=== PATIENT | male | born 1960 | race Caucasian/White ===

== ENCOUNTER 2025-01-23 03:36 | Inpatient (IN) | payer MEDICARE, SELFPAY ==
[2025-01-23] VITALS (33 sets, daily range): BP systolic 101–169; BP diastolic 58–108; BMI 23.9; BMI 23.7
--- NOTE | 2025-01-23 00:13 | ED.GENMED ---
History of Present Illness
General
Chief Complaint: Chest Pain
Source: patient
Exam Limitations: none
Time Seen by Provider: 01/23/25 00:09
History of Present Illness
History of Present Illness:
See MDM
Past History
Past History
ED Past Medical History: CAD, GERD and HTN
Social History
Tobacco: Former smoker
Personal:
Phy Exam
Physical Exam
Physical Exam:
See MDM
Scores
Heart Score for Chest Pain Patients
STEMI patient?: No
History: Moderately Suspicious
ECG: Significant ST-Depression
Age: >/= 65 years
Risk Factors: >/= 3 Risk Factors or History of CAD
Troponin: >1 - <3 x Normal Limit
Heart Score for Chest Pain Patients: 8
Heart Score Risk: 72.7 % MACE over next 6 weeks
Course
Orders/Labs/Results
Orders:
Orders
01/23/25 00:10
EKG [Electrocardiogram (*1)] Urgent
Reason for Study: Chest Pain
EKG- Treatment ONCE
01/23/25 00:13
CR Chest - 2 Views Urgent
Comment:
Reason For Exam: left side chest pain
01/23/25 00:18
Complete Blood Count/With Diff Urgent
Comprehensive Metabolic Panel Urgent
Troponin I Urgent
01/23/25 00:20
Nitroglycerin Sublingual [Nitrostat (Sublingual)] 0.4 mg .ROUTE .STK-MED ONE
01/23/25 00:22
Nitroglycerin Sublingual [Nitrostat (Sublingual)] 0.4 mg SL NOW STA
01/23/25 00:30
Heparin 4,000 units IV NOW STA
Nursing to Place Non Medication Order As Directed
Physician Order: PTT 6 hours after initial start of Heparin infusion
Above order entered?: Yes
01/23/25 00:35
PTT Urgent
Comment: Obtain baseline before beginning heparin infusion if not already collected
01/23/25 00:45
Heparin 40925 Units/250 ml 25,000 units in 250 ml IV PER PROTOCOL
Weight to be used for heparin protocol in kilograms (kg):: 75.5
Protocol:: Cardiac Tx/Acute Coronary
PTT Goal Range to be used:: PTT 73 to 111 seconds
Order type:: Initial
INITIAL Infusion Dose (UNITS/KG/hr) & then follow protocol:: 15 units/kg/hr
Infusion Dose in UNITS/hr & then follow protocol (UNITS/hr):: 1,150
INFUSION RATE in mL/hr & then follow protocol (mL/hr):: 11.5
PTT less than or equal to 64 seconds:: Increase rate by 200 units/hr (+ 2 mL/hr)
PTT 64.1 to 72.9 seconds:: Increase rate by 100 units/hr (+ 1 mL/hr)
PTT 73 to 111 seconds:: Target Range. No change in rate.
PTT 111.1 to 130.9 seconds:: Decrease rate by 100 units/hr (- 1 mL/hr)
PTT 131 to 199.9 seconds:: HOLD for 1 hr. Then decrease rate by 200 units/hr (- 2 mL/hr)
PTT greater than or equal to 200 seconds:: HOLD for 2 hrs & Notify Provider. Then decrease by 200 units/hr (-
2 mL/hr)
Lab follow-up:: Each change, PTT q6h until 2 consecutive are therapeutic. Then PTT
daily.
01/23/25 06:53
PTT Urgent
Abnormal Lab Results
01/23/25
00:18
MPV 12.3 H fL
(7.4-10.4)
Abs Immat Gran (auto) 0.2 H 10^3/uL
(0-0.05)
Absolute Neuts (auto) 7.1 H 10^3/uL
(1.4-6.5)
Absolute Lymphs (auto) 0.9 L 10^3/uL
(1.2-3.4)
Immature Gran % 1.7 H %
(0-0.5)
Neutrophils % 81.8 H %
(42.2-75.2)
Lymphocytes % 9.9 L %
(20.5-51.1)
BUN 23 H mg/dl
(9-20)
Glucose 205 H mg/dl
(70-99)
Troponin I 0.041 H* ng/ml
01/23/25 00:18
01/23/25 00:18
Vital Signs
Initial and Last Documented VS:
Initial Vital Signs
Pulse Ox
97
01/23/25 00:12
Last Documented Vital Signs
Temp Pulse Resp BP Pulse Ox
98.5 F 62 12 132/87 96
01/23/25 00:21 01/23/25 01:00 01/23/25 01:00 01/23/25 01:00 01/23/25 00:30
MDM/Problems Addressed
Differential Diagnosis Includes:
HPI and MDM Narrative:
64-year-old male presenting with left-sided chest pain. He noticed the pain approximately 1 to 2 hours ago when he woke up. He eventually decided to take a nitroglycerin tablet but it did not help. He took aspirin. He then called 911. EMS
provided another nitroglycerin with no relief. Patient does have a history of cardiac stents. He denies shortness of breath.
Physical exam
General: Well appearing and non-toxic
HEENT: protecting airway
Neck: appears supple
CV: No evidence of cyanosis. Regular rate and rhythm
Resp: No accessory muscle use. Lungs clear
Abd: Non-distended
Extremities: No deformities
Neuro: alert
Psych: Normal affect
Skin: Intact
Problems Addressed including Acute and Chronic Conditions affecting care:
1. Chest pain
Acuity: acute
Prognosis: unstable
Details: Cardiology aware. Will treat as NSTEMI. Heparin started
Updates
12:15 AM I soon as patient arrived, EKG was performed, there is artifact in V3 which reads STEMI. There is ST depressions and T wave inversions anterior and lateral which is changed from prior. However, prior EKG from 2013. The EKG was repeated
without the artifact which is still somewhat concerning for T wave inversions anterior and laterally
12:25 AM arrived at bedside showing an EKG at baseline and his more recent showing significant ST depressions and T wave inversions which appear similar to what we are seeing now. Case rediscussed with invasive cardiology. Will treat more
likely has NSTEMI. Will not call STEMI alert
Troponin mildly elevated. Nitro does not seem to be helping with the pain. Will give dose of morphine
Differential Diagnosis (but not limited to):
Testing considered:
Drug therapy (if applicable): OTC meds, please see d/c instruction regarding Rx drugs
Amount and/or Complexity of Data Reviewed
Clinical info obtained from: Patient
External data reviewed: N/A
Labs I independently reviewed (but not limited to): Elevated troponin
Radiology: X-ray independently reviewed: Chest x-ray clear
Pulse Ox: not hypoxic
EKG independently reviewed: Sinus rhythm, normal axis, diffuse ST depression and T wave inversion anterior laterally what
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
Critical Care: The high probability of a clinically significant, sudden or life threatening deterioration of the cardiovascular system(s) required my full and direct attention, intervention and personal management. The aggregate critical care time
was 35 minutes. This time is in addition to time spent performing reported procedures but includes the following:
[x] Data Review and interpretation
[x] Patient assessment and monitoring of vital signs
[x] Documentation
[x] Medication orders and management
Risk of Complication:
Social Determinants of health: Good social support
Discussed with other providers: Chick Grader, hospitalist
Escalation of Care includes Admit/Obs: Given concern for NSTEMI, will admit on heparin
Occasional wrong word or 'sound a like' substitutions may have occurred due to the inherent limitations of voice recognition software. Read the chart carefully and recognize, using context, where substitutions have occurred.
*Critical Care Note
Total Time (30-74mins, 75-104mins- exclusive of procedures): 35 min
ED Attending Note
-
Portions of this chart may have been created with voice recognition software.� Occasional wrong word or��sound alike� substitutions may have occurred due to the inherent limitations of voice recognition software.
Discharge Plan
Departure
Patient Disposition: Admit
Date of Disposition: 01/23/25
Time of Disposition: 01:36
Admit to: IMU
Presentation/result/management discussed w/ accepting MD/DO: Hospitalist
Discharge Problem:
Non-ST elevation MD (NSTEMI)
Prescriptions:
No Action
Claritin-D 24 Hour 1 EACH tablet extended release 24 hr
1 tab PO PRN PRN (Reason: BINDU)
aspirin 325 MG tablet
81 mg PO DAILY
atorvastatin 20 MG tablet
10 mg PO QPM
docosahexaenoic acid-epa 1 CAP capsule
1 cap PO DAILY
omeprazole magnesium [Prilosec OTC] 20 MG tablet,delayed release (DR/EC)
20 mg PO DAILY Qty: 0 0RF
Rx Instructions:
over the counter med
atenolol 50 MG tablet
25 mg PO Q48H Qty: 0 0RF
Cimerli 0.5 mg/0.05 mL Solution
0.5 mg INTRAVITREAL [id number]
Referrals:
Karley Porter DO [Family Provider] -
Interventions
Interventions:
*Risk Screen - Suicide Last Done: 01/23/25 00:12
*General Assessment Last Done: 01/23/25 00:12
*Neglect/Abuse Screening Last Done: 01/23/25 00:12
*ED- Fall Risk Assessment Last Done: 01/23/25 00:12
*ED COVID-19 Vaccine History Last Done: 01/23/25 00:19
ED- Cardiac Assessment Last Done: 01/23/25 00:31
Discharge Date and Time
Print Language: ROMANIAN
[2025-01-23] MEDS: NITROSTAT (SUBLINGUAL) 0.4 MG SL (00:23)
[2025-01-23 00:46] LABS: % Basophils 0.7 % (0-2); % Immature Granulocytes 1.7 % (0-0.5); % Lymphocytes 9.9 % (20.5-51.1); % Monocytes 4.9 % (1.7-9.3); % Neutrophils 81.8 % (42.2-75.2); Absolute Basophils 0.1 10^3/uL (0-0.2); Absolute Eosinophils 0.1 10^3/uL (0-0.7); Absolute Immature Granulocytes 0.2 10^3/uL (0-0.05); Absolute Lymphocytes 0.9 10^3/uL (1.2-3.4); Absolute Monocytes 0.4 10^3/uL (0.1-0.6); Absolute Neutrophils 7.1 10^3/uL (1.4-6.5); Hemoglobin 14.5 g/dL (13.0-18.0); Mean Corp Hgb Conc. 34.5 g/dL (33.0-37.0); Mean Corpuscular Hgb 30.7 pg (27.0-31.0); Mean Corpuscular Volume 88.8 fL (80.0-94.0); Mean Platelet Volume 12.3 fL (7.4-10.4); Nucleated Red Blood Cells % 0 % (-); Platelet Count 154 10^3/uL (130-400); Red Blood Cell Count 4.73 10^6/uL (4.70-6.10); Red Cell Dist. Width 12.9 % (11.5-14.5); White Blood Cell Count 8.7 10^3/uL (4.8-10.8)
[2025-01-23 00:47] LABS: ALT (SGPT) 29 U/L (0-50); AST (SGOT) 27 U/L (17-59); Albumin 4.1 g/dl (3.5-5.0); Alkaline Phosphatase 69 U/L (38-126); Blood Urea Nitrogen 23 mg/dl (9-20); Calcium 10.2 mg/dl (8.4-10.2); Carbon Dioxide 28 mmol/L (22-30); Chloride 105 mmol/L (98-107); Estimated Creatinine Clearance 94 ml/min; Glucose 205 mg/dl (70-99); Potassium 4.6 mmol/L (3.5-5.1); Sodium 142 mmol/L (135-145); Total Bilirubin 0.5 mg/dl (0.2-1.3); Total Protein 6.8 g/dl (6.3-8.2); eGFR > 60.00
[2025-01-23 00:51] LABS: APTT 24.4 Sec (23.4-35.0)
[2025-01-23] MEDS: HEPARIN 4000 UNITS IV (00:52)
[2025-01-23] MEDS: HEPARIN 25000 UNITS/250 ML IV (00:53)
[2025-01-23 01:00] LABS: Troponin I 0.041 ng/ml
[2025-01-23] MEDS: MORPHINE SULFATE 4 MG IV (02:27)
[2025-01-23] MEDS: NITROGLYCERIN PREMIX 250 IV (03:27)
[2025-01-23 04:25] LABS: Troponin I 0.432 ng/ml
--- NOTE | 2025-01-23 04:33 | HPS.HSE ---
Family Physician
-
Family Physician: Karley Porter
Chief Complaint
-
Chest Pain
History of Present Illness
Patient is a 64y M with PMH significant for ASCVD who presents to ED complaining of chest pain. Patient states that pain started this evening around 10:30 PM. He was preparing for bed when the pain started. He describes substernal chest pain
with some radiation into the L chest. Brief period of 'tingling' in the L arm. No radiation to the back, jaw, abdomen. Pos diaphoresis. No N/V. No SOB. Pain was 8/10 at it's peak. Patient denies any prior h/o similar symptoms. He does have
prior h/o CAD and underwent staged stenting in 2010 (here). He states that he has had no issues since that time. He is followed by Dr. Foy of [facility].
At the time of my examination, patient notes that his chest pain is 6/10. He has had minimal improvement in symptoms despite SL NTG and IV morphine here in the ED.
Medical History
Past Medical History
Past Medical History: Reports Other
Additional Past Medical History:
ASCVD
CRVO
Past Surgical History: Reports Other
Additional Past Surgical History:
PTCA with 3 Stents
Social History
Tobacco: Former Smoker (Quit smoking 30 years ago.)
Alcohol: Occasional
Drug: None
Family History
Family History: CAD
Allergies / Home Medications
Allergies reflects when Allergies were last updated in [employer].
Home Medications with original date entered in [employer]
Allergy/Medication List:
Allergies
Allergy/AdvReac Type Severity Reaction Status Date / Time
No Known Allergies Allergy Verified 01/23/25 02:36
Home Medications
loratadine-pseudoephedrine ER 10 mg-240 mg tablet,extended [id number] (Claritin-D 24 Hour) 1 tab PO PRN PRN ALERGIES 08/05/11
aspirin 325 mg tablet 81 mg PO DAILY 08/12/11
atorvastatin 20 mg tablet 10 mg PO QPM 08/12/11
atenolol 50 mg tablet 25 mg (1/2 x 50 mg) PO Q48H #0 tabs 10/29/13
docosahexaenoic acid (dha)-epa 120 mg-180 mg capsule 1 cap PO DAILY 10/29/13
omeprazole magnesium 20 mg tablet,delayed release (Prilosec OTC) 20 mg PO DAILY ##0 10/29/13
ranibizumab-eqrn 0.5 mg/0.05 mL intravitreal solution for injection (Cimerli) 0.5 mg intravitreal [id number] 01/23/25
Review of Systems
-
History Source: Patient
A 12 point ROS was completed and negative except as noted: Yes
Constitutional: Denies Fever or Chills
EENT: Denies Sore Throat
Respiratory: Denies Cough or Trouble Breathing
Cardiac: Reports Chest Pain and Diaphoresis; Denies Palpitations or Syncope
Abdomen/GI: Denies Abdominal Pain, Nausea, Vomiting or Diarrhea
: Denies Dysuria or Frequency
Musculoskeletal: Denies Joint Pain or Edema
Neurological: Denies Dizzy or Headache
Psych: Denies Depression or Anxiety
Physical Exam
Vital Signs
Vital Signs
Temp Pulse Resp BP Pulse Ox
98.5 F 86 15 145/84 97
01/23/25 00:21 01/23/25 04:00 01/23/25 04:00 01/23/25 04:00 01/23/25 04:00
Physical Exam
General: Other (64y M in no acute distress.)
HEENT: Moist mucous membranes and PERRLA
Respiratory: Clear; No Wheezes, Rales or Rhonchi
Cardiac: S1/S2 and Regular Rhythm; No Murmur
GI: Soft, Non Tender, Non Distended and Normal Bowel Sounds
Musculoskeletal: No Clubbing, No Cyanosis and No Edema
Neuro: AO x 3
Laboratory Results
-
01/23/25 00:18
Laboratory Results
APTT 24.4 Sec (23.4-35.0) 01/23/25 00:35
Total Bilirubin 0.5 mg/dl (0.2-1.3) 01/23/25 00:18
AST 27 U/L (17-59) 01/23/25 00:18
ALT 29 U/L (0-50) 01/23/25 00:18
Alkaline Phosphatase 69 U/L (38-126) 01/23/25 00:18
Troponin I 0.432 ng/ml H* D 01/23/25 03:37
Impression/Plan
-
A/P: Patient is a 64y M with PMH significant for ASCVD who presents to ED complaining of chest pain.
NSTEMI / ACS
ASCVD
- Admit for further evaluation and treatment.
- EKG in the ED with diffuse ST depressions / T wave inversions.
- Significant change from prior tracings here (2013); however, has 'baseline' EKG from his current Biological Technical Officer showing similar changes.
- Initial troponin 0.04. Pain persistent thus far despite NTG / morphine.
- Begin IV NTG infusion and titrate as needed for pain control.
- IV heparin.
- Continue ASA, statin (increase dose), etc.
- IV Lopressor ATC for now.
- Check lipid panel, A1C, etc.
- Cardiology consult for additional recommendations and likely ischemic evaluation.
- Consider more urgent intervention if pain cannot be controlled.
CRVO
- Stable. Continue ASA as noted above.
- Received monthly Cimerli injections as an outpatient.
DVT Prophylaxis: On IV heparin infusion at present.
Code Status: Full
--- NOTE | 2025-01-23 05:23 | PTCARENOTE ---
Rec'd pt from ED awake,alert stating CP is improved since admit but still has 2 out of 10 midsternal sharp pain, non radiating. NTG gtt at 35 mcq upon arrival but increased to 40 mcq when pt stated he thought cp was up to 3 out of 10. Pt aware to
call nursing should cp increase. call euceda within reach. Adm hx taken and recorded
ACS education book given to pt
--- NOTE | 2025-01-23 06:55 | PTCARENOTE ---
Pt still with c/o 3 out of 10 CP. O2 at 2lit n/c placed. Am ecg showed STEMI. ECG sent to Dr Yeboah via [employer] text. Dr Yeboah states their is no stemi.
[2025-01-23 07:00] LABS: APTT 111.8 Sec (23.4-35.0)
[2025-01-23 07:35] LABS: Blood Urea Nitrogen 19 mg/dl (9-20); Calcium 10.2 mg/dl (8.4-10.2); Carbon Dioxide 26 mmol/L (22-30); Chloride 108 mmol/L (98-107); Estimated Creatinine Clearance 107 ml/min; Glucose 121 mg/dl (70-99); HDL Cholesterol 49 mg/dl; LDL Cholesterol, Calculated 71 mg/dl; Potassium 4.3 mmol/L (3.5-5.1); Sodium 141 mmol/L (135-145); Total Cholesterol 131 mg/dl (50-199); Triglyceride 56 mg/dl (10-149); Very Low Density Lipoprotein 11 mg/dl (0-30); eGFR > 60.00
--- NOTE | 2025-01-23 08:47 | W.PN.HOSP.TC ---
Today's Communication/Plan
-
Hemoglobin A1c
N.p.o.
Await catheterization
Assessment / Plan
Assessment / Plan
Gen-AAOx3, NAD
HEENT-NC, AT, anicteric, clear oral mm
Neck-supple
CV-reg, no M, +S1/S2
Lungs-clear B/L
Abd-soft, NT, ND
Ext-no edema
Musculoskeletal-no cyanosis, clubbing
Skin-warm and dry
Neuro-grossly non-focal
Psych-calm, cooperative
ACS/NSTEMI -n.p.o., awaiting possible catheterization today. IV heparin.
Troponin trending up, 2.0. Still with mild chest pressure, continue IV nitroglycerin.
CAD -with 3 prior stents. Last catheterization 2013.
Hyperglycemia -rule out DM2. Glucose 205 last night, 121 this morning. Check hemoglobin A1c.
Central retinal vein occlusion -left eye. Gets intravitreal injections of Cimerli.
Full code
Updated at the bedside.
Anticipated Discharge: > 48 hours
Subjective/Interval History
-
Date of Service: January 23, 2025
Patient seen and examined. Still with mild substernal chest pressure, much improved compared to last night. Denies shortness of breath.
Objective Data
-
Labs:
Laboratory Results
01/23/25 01/23/25 01/23/25
00:18 00:35 06:37
WBC 8.7
Hgb 14.5
Hct 42.0
Plt Count 154
APTT 24.4 111.8 H
Sodium 142 141
Potassium 4.6 4.3
Chloride 105 108 H
Carbon Dioxide 28 26
BUN 23 H 19
Creatinine 0.8 0.7
Glucose 205 H 121 H
Calcium 10.2 10.2
Total Bilirubin 0.5
AST 27
ALT 29
Alkaline Phosphatase 69
01/23/25
13:45
WBC
Hgb
Hct
Plt Count
APTT Pending
Sodium
Potassium
Chloride
Carbon Dioxide
BUN
Creatinine
Glucose
Calcium
Total Bilirubin
AST
ALT
Alkaline Phosphatase
Vital Signs:
Vital Signs
Temp Pulse Resp BP Pulse Ox
98.4 F 63 16 115/69 97
01/23/25 08:14 01/23/25 08:15 01/23/25 08:14 01/23/25 08:14 01/23/25 08:14
Review of Systems
-
History Source: Patient
All other systems: Reviewed and negative
--- NOTE | 2025-01-23 08:55 | CON.CAR ---
Consultation
Consultation Request
Date/Time Consultation Requested: 01/23/25
Date/Time Consultation Performed: 01/23/25
Reason for Consultation: Chest pain
Medical History
-
Chief Complaint: Chest pain
History of Present Illness:
64y M with PMH significant for ASCVD who presents to ED complaining of chest pain. Patient states that pain started this evening around 10:30 PM. He was preparing for bed when the pain started. He describes substernal chest pain with some
radiation into the L chest. Brief period of 'tingling' in the L arm. No radiation to the back, jaw, abdomen. Pos diaphoresis. No N/V. No SOB. Pain was 8/10 at it's peak. Patient denies any prior h/o similar symptoms.
He does have prior h/o CAD and underwent staged stenting in 2010 (@ ). He states that he has had no issues since that time. He is followed by Dr. Foy of [facility].
Patient notes that his chest pain was 6/10 at admission and is noted to be 3/10 this AM. He has had minimal improvement in symptoms despite SL NTG and IV morphine here in the ED.
Past Medical History
Past Medical History: CAD (PCI with stents in LAD, D2, OM3 and pLCx (2010))
Social History
Tobacco: Former Smoker
Alcohol: Occasional
Drug: None
Family History
Family History: Reviewed & Not Pertinent
Allergies / Home Medications
Allergy/AdvReac Type Severity Reaction Status Date / Time
No Known Allergies Allergy Verified 01/23/25 02:36
�Medication �Instructions �Recorded �Confirmed �Type
loratadine-pseudoephedrine ER 10 1 tab PO PRN PRN BINDU 08/05/11 01/23/25 History
mg-240 mg tablet,extended
[id number] (Claritin-D 24 Hour)
aspirin 325 mg tablet 81 mg PO DAILY 08/12/11 01/23/25 History
atorvastatin 20 mg tablet 10 mg PO QPM 08/12/11 01/23/25 History
atenolol 50 mg tablet 25 mg (1/2 x 50 mg) PO Q48H #0 tabs 10/29/13 01/23/25 Rx
docosahexaenoic acid (dha)-epa 120 1 cap PO DAILY 10/29/13 01/23/25 History
mg-180 mg capsule
omeprazole magnesium 20 mg 20 mg PO DAILY ##0 10/29/13 01/23/25 Rx
tablet,delayed release (Prilosec
OTC)
ranibizumab-eqrn 0.5 mg/0.05 mL 0.5 mg intravitreal [id number] 01/23/25 01/23/25 History
intravitreal solution for
injection (Cimerli)
Review of Systems
-
All other systems: Negative unless noted
Physical Exam
Vital Signs
Temp Pulse Resp BP Pulse Ox
98.4 F 63 16 115/69 97
01/23/25 08:14 01/23/25 08:15 01/23/25 08:14 01/23/25 08:14 01/23/25 08:14
Lab Results
01/23/25 00:18
01/23/25 06:37
Troponin I 2.070 ng/ml H* D 01/23/25 06:37
Physical Exam
General: Well Developed, Well Nourished and No Apparent Distress
HEENT: Normocephalic and Moist Mucous Membranes
Respiratory: Clear, Wheezes and Rhonchi
Cardiac: S1/S2 and Regular Rhythm; Negative Murmur
GI: Soft, Non Tender and Non Distended
Musculoskeletal: No Clubbing, No Cyanosis and No Edema
Skin: Warm and Dry
Neuro: Awake, Oriented and AO x 3
Impression / Plan
-
64 yrs old man with CAD and hx of CAD s/p PCI (2010 - severe triple vessel disease) s/p PCI to LAD, D2 then staged OM3 and pLCX now presented with ACS with NSTEMI
ACS
- Trop went up from 0.04 to 0.4 to 2.0
- Chest pain is not completely resolved
- EKG is showing ischemia
- Will call in the cath for urgent cardiac cath today.
- On ASA, Lipitor, Metoprolol, along with Heparin and Nitro drips.
- With triple vessel disease, will not give Plavix until cath is done.
- Morphine for pain until cath.
Data Reviewed
-
EKG: Report Reviewed by me and Discussed with Physician
Radiology: Image Personally Visualized and interpreted
Medical Tests (Nuc Med, Echo etc): Image Personally Visualized and interpreted
Labs: Labs Reviewed by me and Discussed with Physician
Old Records: Reviewed
Critical Care Time (in minutes): 35
[2025-01-23] MEDS: PROTONIX 40 MG PO (09:17)
[2025-01-23] MEDS: LOW STRENGTH ASPIRIN 81 MG PO (09:17)
--- NOTE | 2025-01-23 09:46 | PTCARENOTE ---
Received patient this morning resting in bed, still with 2/10 midsternal chest pain that he describes as an ache. IV heparin infusing at 1050 units/hr now according to protocol and NTG infusing at 50mcg. Patient seen by Dr. Virgen and Dr. Yeboah
and will be taken to the medical lab director today, team activated. Report given to Zenobia. Call euceda in reach, at the bedside.
[2025-01-23 10:38] LABS: ACT-LR - POC 256 Seconds (116-155)
[2025-01-23 10:46] LABS: Glycohemoglobin (HgbA1c) 5.5 % (4.0-5.6)
[2025-01-23 11:19] LABS: ACT-LR - POC 303 Seconds (116-155)
--- NOTE | 2025-01-23 12:01 | ITS.CL.PN ---
Customer Service Rep - Procedure Note
Procedure
Procedure Note:
CARDIAC CATHETERIZATION REPORT
Date of Procedure: 01/23/2025
Referring: Dr. Kayleen Yeboah MD
Indication: high risk NSTEMI, unable to get chest pain free with nitroglycerin drip and ongoing dynamic inferior ST changes
PROCEDURE(S)
1. left heart catheterization
2. coronary angiography
3. IVUS LCx
4. PCI with AARON to OM2
5. PCI with AARON to OM3
ACCESS: 6F right radial artery (closure: radial band)
CATHETERS
1. 6F JR4
2. 6F JL3.5
3. 6V EBU3.75 guide
MODERATE SEDATION: 60 minutes of moderate sedation was utilized. An independent biomedical analytical scientist was present to assist with and help manage the patient's level of consciousness and physiologic status.
HEMODYNAMIC DATA
LV 102/7 (EDP 14) mmHg
AO 102/65 (mean 77) mmHg
CORONARY ANGIOGRAPHY
Dominance: right
LM: Large with mild disease
LAD: Large vessel giving rise to 3 moderate caliber diagonal branches. There is a prior stent in the proximal LAD with mild ISR. There is moderate disease in the proximal D1 and proximal D2 with RADHA-3 flow.
LCx: Large vessel giving rise to a small OM1 and very large branching OM2 with a large superior and smaller inferior branch. There is a prior stent in the proximal portion of the OM2 and a second stent in the smaller inferior branch of the OM2. The
vessel is 100% occluded within the proximal OM2 stent.
RCA: Large vessel giving rise to a large RPDA and large RPL branch. There is severe diffuse disease in the distal vessel. There is a total occlusion of the ostium of the RPDA with faint left to left collaterals and evidence of competitive R-L flow.
The RPL fills with RADHA II flow with evidence of competitive R-L flow. On the left coronary artery injection there is evidence of robust L-R collaterals to both branches.
PCI with DESx3 to OM2
The decision was made to proceed with PCI to the culprit OM2. Heparin was administered to achieve ACT greater than 300. A Runthrough coronary wire was placed in the large superior branch of the OM2. Initial lesion preparation was performed with a
2.0 mm balloon with restorationism of flow. There was evidence of severe plaque in the proximal portion of the smaller inferior branch so a second wire was placed in this branch for protection. IVUS was performed demonstrating diffuse minimally
calcified plaque, with heavy but noncritical plaque extending into the large branch. Reference diameter was 4.0 mm EEL-EEL in the main branch and 3.5 mm EEL-EEL in the large superior branch. Initial plan was to stent just proximal to the bifurcation
covering the occluded vessel segment thus avoiding bifurcation PCI. A 3.5 x 22 mm [place] drug-eluting stent was delivered. There remained RADHA-3 flow in the smaller side branch though worsened ostial pinching. Angiography revealed the disease
in the larger superior branch to be severe. The jailed sidebranch wire was removed and the branch rewired. A second overlapping 3.5 x 22 mm [place] AARON was deployed in the large branch with minimal overlap followed by dilation of the overlap
with the stent balloon. The now jailed sidebranch demonstrated worsened ostial pinching and RADHA II flow. The jailed wire was again removed and rewired through stent struts. Decision was made to perform balloon angioplasty of the proximal aspect of
the sidebranch with a 2.0 mm balloon. The appearance of the vessel remained suboptimal after balloon angioplasty with RADHA II flow. Thus, the decision was made to perform bailout bifurcation stenting with a TAP technique. A 2.25 x 12 mm [place] AARON was delivered to the sidebranch with minimal protrusion and a 3.5 x 12 compliant balloon delivered to the distal main branch. Following deployment of the sidebranch stent at nominal pressure, the stent balloon was pulled back,
high-pressure flaring of the ostium was performed, after which the 3.5 x 12 balloon was pulled back and simultaneous kissing inflation was performed to nominal pressure with simultaneous deflation. Angiography demonstrated excellent flow in the
sidebranch. Post dilation of the proximal aspect of the main branch stent was then performed with a 3.5 mm NC balloon taken to high-pressure. Final IVUS of the main branch demonstrated full stent expansion and apposition with mild protrusion of the
sidebranch stent into the main branch. There were no edge dissections. The wire and guide were removed and a TR band placed. The patient was loaded with 60 mg prasugrel and taken to the cath recovery unit. Chest pain had resolved by the end of the
case.
RADIATION: dose 1607.35 mGy; DAP 123.19 Gy*cm2; fluoroscopy time 19.8 min
CONCLUSIONS
1. Coronary artery disease as described with culprit 1% proximal occlusion of the OM1 to, patent stent in the LAD, and severe disease in the large RCA with collateral flow.
2. Mildly elevated LV filling pressure and no aortic stenosis on hemodynamic pullback
3. Successful PCI to the large branching OM2 with AARON x 3 with initial provisional strategy followed by bailout bifurcation stenting with TAP technique (overlapping 3.5x22 and 3.5x22 [place] AARON in main branch, 2.25x12 mm [place] in side
branch).
RECOMMENDATIONS
1. Continue DAPT with aspirin and prasugrel for at least 1 year
2. Very aggressive secondary prevention of coronary artery disease with aggressive risk factor modification including a goal LDL at least <55
3. Check Lp(a), if elevated, strong recommendation for PCSK9i
4. Titrate metoprolol tartrate to goal heart rate 50-60 followed by conversion to succinate at discharge
5. If additional blood pressure lowering is needed, suggest WAQAS/ARB/ARNI as next agent
6. Further GDMT as determined by echo in AM
7. Trend troponin to peak
8. Check A1c
9. Bring back in 48 hours for nonculprit PCI to the RCA
10. Cardiac rehab
11. Outpatient follow-up with primary change management consultant Dr. Rolando Foy, [facility]
Copy to: Dr. Rolando Foy DO (change management consultant); Karley Porter DO (PCP)
Signed: Basil Arreguin MD, PhD
[2025-01-23] MEDS: NSS 1000 IV (12:14)
[2025-01-23] MEDS: LOPRESSOR 12.5 MG PO (12:18)
[2025-01-23] MEDS: EFFIENT 60 MG PO (12:18)
--- NOTE | 2025-01-23 12:26 | PTCARENOTE ---
Received patient after cardiac cath and stent placement. Radial band in place right wrist with pulse ox of 95% on the right hand, strong radial pulse present and no signs of bleeding or hematoma noted. Post EKG done, reviewed post cath restrictions.
Patient is pain free at this time, weaning NTG drip, IV NSS infusing LAC at 200ml/hr x [address] Arreguin in to speak with the patient and his . at the bedside, call euceda in reach.
--- NOTE | 2025-01-23 15:48 | PTCARENOTE ---
NTG gtt weaned off, patient remains pain-free, finishing up post cath IVF's as ordered. VSS, SR on the monitor. Radial band to be removed at 1600, strong radial pulse, no bleeding or hematoma noted. Patient trying to rest, call euceda in reach.
[2025-01-23] MEDS: LIPITOR 40 MG PO (17:21)
--- NOTE | 2025-01-23 18:19 | PTCARENOTE ---
Patient was lying in bed and had a 10 beat run of VT, asymptomatic, BP 123/72, troponin elevated at 37.0 from previous result of 5.790. TT to Dr. Arreguin who telephoned and increased dose of metoprolol to 25mg BID, BMP and Mag drawn and sent to the
lab as ordered. Will repeat troponin with AM labs.
[2025-01-23 18:36] LABS: Blood Urea Nitrogen 16 mg/dl (9-20); Calcium 10.2 mg/dl (8.4-10.2); Carbon Dioxide 29 mmol/L (22-30); Chloride 104 mmol/L (98-107); Estimated Creatinine Clearance 94 ml/min; Glucose 151 mg/dl (70-99); Magnesium 1.6 mg/dl (1.6-2.3); Potassium 4.1 mmol/L (3.5-5.1); Sodium 139 mmol/L (135-145); eGFR > 60.00
--- NOTE | 2025-01-23 19:25 | PTCARENOTE ---
TT to Dr. Arreguin re: lab results, and 4 beat run asymptomatic VT. Will give mag oxide PO as ordered.
[2025-01-23] MEDS: LOPRESSOR 25 MG PO (19:52)
[2025-01-23] MEDS: MAG-TAB SR 168 MG PO (19:52)
[2025-01-24 04:45] VITALS: BP 106/66
[2025-01-24 05:02] VITALS: BMI 23.5
[2025-01-24 05:25] LABS: Blood Urea Nitrogen 14 mg/dl (9-20); Carbon Dioxide 28 mmol/L (22-30); Chloride 107 mmol/L (98-107); Estimated Creatinine Clearance 94 ml/min; Glucose 105 mg/dl (70-99); Magnesium 1.9 mg/dl (1.6-2.3); Potassium 4.5 mmol/L (3.5-5.1); Sodium 139 mmol/L (135-145); eGFR > 60.00
[2025-01-24 07:57] VITALS: BP 116/74
--- NOTE | 2025-01-24 08:10 | W.PN.HOSP.TC ---
Today's Communication/Plan
-
NPO after midnight for RCA PCI tomorrow
Glucose Accuchecks
Echocardiogram today
Assessment / Plan
Assessment / Plan
Physical Exam
Gen-AAOx3, NAD
HEENT-NC, AT, anicteric, clear oral mm
Neck-supple
CV-reg, no M, +S1/S2
Lungs-clear B/L
Abd-soft, NT, ND
Ext-no edema
Musculoskeletal-no cyanosis, clubbing
Skin-warm and dry
Neuro-grossly non-focal
Psych-calm, cooperative
Assessment/Plan
ACS/NSTEMI secondary to 100% occluded LCx s/p complex bifurcation PCI with DESx3
Non-culprit RCA disease
-First cath took place on 01/23/25 with stents placement
-Continue Dual Antiplatelet Therapy and high-intensity statin
-Continue beta arnaldo and ARB.
-Per cardiology, no need for Heparin Drip or Nitro Drip
-NPO after midnight for cardiac cath tomorrow for the non-culprit RCA disease/staged PCI tomorrow
-Echocardiogram today
CAD -with 3 prior stents. Last catheterization 2013. Continue beta arnaldo and ARB.
Hyperglycemia -rule out DM2. Glucose appears controlled. Accuchecks to check glucose variation throughout the day. Hemoglobin A1c 5.5%. Outpatient follow-up.
Central retinal vein occlusion -left eye. Gets intravitreal injections of Cimerli.
Full code
Updated daughter at the bedside.
Anticipated Discharge: 24 - 48 hours
Subjective/Interval History
-
Date of Service: January 24, 2025
Patient was seen and examined. He was sitting comfortably on his bed, denied any chest pain, SOB, no reports of bleeding.
Objective Data
-
Labs:
Laboratory Results
01/24/25
04:49
Sodium 139
Potassium 4.5
Chloride 107
Carbon Dioxide 28
BUN 14
Creatinine 0.8
Glucose 105 H
Calcium 10.0
Vital Signs:
Vital Signs
Temp Pulse Resp BP Pulse Ox
97.6 F 62 20 106/66 96
01/24/25 07:57 01/24/25 06:00 01/24/25 07:57 01/24/25 04:45 01/24/25 07:57
I&O
01/23/25 01/24/25 01/25/25
06:59 06:59 06:59
Intake Total 1280 / 1280
Output Total 250 / 250
Balance 1030 / 1030
--- NOTE | 2025-01-24 08:22 | W.PN.CD ---
Today's Communication / Plan
-
NPO@[place] for RCA PCI tomorrow
started valsartan
echo today
Impression / Plan
-
64 yrs old man with CAD and hx of CAD s/p PCI (2010 - severe triple vessel disease) s/p PCI to LAD, D2 then staged OM3 and pLCX now presented with ACS with NSTEMI
NSTEMI
- 100% occluded LCx s/p complex bifurcation PCI with DESx3
- trop peak 37
- also has non-culprit RCA disease with plan for staged PCI 01/25; NPO@MN tonight for staged PCI tomorrow
- cont. DAPT with ASA/Plavix
- LDL 71 on 10 atorva, incresaed to 40; goal LDL<55; if Lp(a) elevated will push for PCSK9i
- cont. metop 25 BID
- start valsartan 40 BID
- TTE today, further GDMT to be determined based on echo
- check A1c
- eventual cardiac rehab
Subjective: feeling well, no CP
Tele: sinus, rare NSVT
Labs reviewed
EKG reviewed, notable for persistent STEs
CXR clear
Discussed with primary public school teacher Roger Foy.
Physical Exam
Vital Signs/Labs
Vital Signs
Temp Pulse Resp BP Pulse Ox
36.4 C 62 20 106/66 96
01/24/25 07:57 01/24/25 06:00 01/24/25 07:57 01/24/25 04:45 01/24/25 07:57
01/23/25 01/24/25 01/25/25
06:59 06:59 06:59
Actual Weight 75 kg 74.3 kg
01/23/25 00:18
01/24/25 04:49
APTT Cancelled 01/23/25 13:45
Magnesium 1.9 mg/dl (1.6-2.3) 01/24/25 04:49
Triglycerides 56 mg/dl (10-149) 01/23/25 06:37
LDL Cholesterol, Calc 71 mg/dl 01/23/25 06:37
VLDL Cholesterol, Calc 11 mg/dl (0-30) 01/23/25 06:37
HDL Cholesterol 49 mg/dl 01/23/25 06:37
LAB Results
01/23/25 01/23/25 01/23/25
00:18 03:37 06:37
Troponin I 0.041 H* 0.432 H* D 2.070 H* D
01/23/25 01/23/25 01/24/25
09:53 16:20 04:49
Troponin I 5.790 H* D 37.000 H* D 16.600 H*
Physical Exam
Constitutional: No acute distress
Respiratory: Respiratory effort normal
Neuro/Psych: AO x 3
Data Reviewed
-
Date of Service: January 24, 2025
Medical Decision Making: Reviewed Test Results
EKG: Tracing Personally Visualized and interpreted
Labs: Labs Reviewed by me
[2025-01-24] MEDS: LOPRESSOR 25 MG PO ×2 (08:59→21:55)
[2025-01-24] MEDS: PROTONIX 40 MG PO (08:59)
[2025-01-24] MEDS: LOW STRENGTH ASPIRIN 81 MG PO (08:59)
[2025-01-24] MEDS: DIOVAN 40 MG PO ×2 (09:03→21:55)
[2025-01-24] MEDS: EFFIENT 10 MG PO (10:07)
--- NOTE | 2025-01-24 10:17 | W.PN.UPDATE ---
Update Note
Progress Note Update
No further need for heparin drip or nitro drip. Can discontinue.
[2025-01-24 11:01] VITALS: BP 120/80
--- NOTE | 2025-01-24 12:20 | CM ---
Chart reviewed. Patient is independent of ADLS, lives with his in a 2 S[address], 0 ADAM, 0 DME. Plan is for the patient to return home. CM to follow
--- NOTE | 2025-01-24 12:34 | CM ---
Pricing on Effient through the patient's [employer], ID# [id number], is not preferred so not covered. The generic Prasugrel Hydrochloride is covered at $5 and is preferred.
[2025-01-24 14:54] VITALS: BP 113/65
--- NOTE | 2025-01-24 15:32 | PTCARENOTE ---
Patient ambulating in room. Patient has no c/o pain, but states, 'I feel a flutter in my chest sometime.' Call euceda in reach. Patient eager for cath tomorrow. RN reviewed patient may have breakfast tomorrow, then NPO at 0900-patient verbalized
understanding. Family at bedside.l
[2025-01-24] MEDS: LIPITOR 40 MG PO (17:13)
[2025-01-24 17:59] LABS: Glucose - Point of Care 145 mg/dl (70-99)
[2025-01-24 18:49] VITALS: BP 119/76
[2025-01-24 19:59] LABS: Hepatitis C Antibody Negative (Negative)
[2025-01-24 22:11] VITALS: BP 112/68
[2025-01-24 22:13] LABS: Glucose - Point of Care 81 mg/dl (70-99)
[2025-01-25 04:58] VITALS: BP 105/65
[2025-01-25 05:55] LABS: Hematocrit 45.7 % (39.0-52.0); Hemoglobin 15.4 g/dL (13.0-18.0); Mean Corp Hgb Conc. 33.7 g/dL (33.0-37.0); Mean Corpuscular Hgb 29.8 pg (27.0-31.0); Mean Corpuscular Volume 88.4 fL (80.0-94.0); Mean Platelet Volume 12.1 fL (7.4-10.4); Platelet Count 154 10^3/uL (130-400); Red Blood Cell Count 5.17 10^6/uL (4.70-6.10); Red Cell Dist. Width 13.2 % (11.5-14.5); White Blood Cell Count 6.3 10^3/uL (4.8-10.8)
[2025-01-25 06:00] VITALS: BMI 23.1
[2025-01-25 06:16] LABS: Blood Urea Nitrogen 19 mg/dl (9-20); Calcium 10.3 mg/dl (8.4-10.2); Carbon Dioxide 27 mmol/L (22-30); Chloride 105 mmol/L (98-107); Estimated Creatinine Clearance 94 ml/min; Glucose 93 mg/dl (70-99); Magnesium 2.1 mg/dl (1.6-2.3); Potassium 4.5 mmol/L (3.5-5.1); Sodium 141 mmol/L (135-145); eGFR > 60.00
[2025-01-25 07:38] VITALS: BP 107/72
[2025-01-25 08:31] VITALS: BP 127/86
[2025-01-25] MEDS: EFFIENT 10 MG PO (08:33)
[2025-01-25] MEDS: LOW STRENGTH ASPIRIN 81 MG PO (08:33)
[2025-01-25] MEDS: PROTONIX 40 MG PO (08:33)
[2025-01-25] MEDS: DIOVAN 40 MG PO (08:33)
[2025-01-25] MEDS: LOPRESSOR 25 MG PO (08:33)
--- NOTE | 2025-01-25 11:17 | W.PN.CD ---
Today's Communication / Plan
-
discharge today on current meds
follow up with Dr. Foy
Impression / Plan
-
64 yrs old man with CAD and hx of CAD s/p PCI (2010 - severe triple vessel disease) s/p PCI to LAD, D2 then staged OM3 and pLCX now presented with ACS with NSTEMI
NSTEMI
- 100% occluded LCx s/p complex bifurcation PCI with DESx3
- trop peak 37
- TTE normal function
- also has non-culprit RCA disease, given complexity of fixing this (long segment stenting, bifurcation) in a territory that is robustly collateralized, will hold off and see how he does clinically; if has signs of angina in the future can address
with PCI
- cont. DAPT with ASA/Prasugrel
- LDL 71 on 10 atorva, incresaed to 40; goal LDL<55; if Lp(a) elevated should push for PCSK9i
- cont. metop 25 BID
- start valsartan 40 BID
- check A1c
- eventual cardiac rehab
Subjective: feeling well, no CP
Tele: sinus
Labs reviewed
Discussed with primary early childhood associate teacher Roger Foy.
Physical Exam
Vital Signs/Labs
Vital Signs
Temp Pulse Resp BP Pulse Ox
36.5 C 73 18 127/86 97
01/25/25 07:41 01/25/25 08:31 01/25/25 07:41 01/25/25 08:31 01/25/25 07:41
01/24/25 01/25/25 01/26/25
06:59 06:59 06:59
Actual Weight 74.3 kg 73.1 kg
01/25/25 05:18
01/25/25 05:18
APTT Cancelled 01/23/25 13:45
Magnesium 2.1 mg/dl (1.6-2.3) 01/25/25 05:18
Triglycerides 56 mg/dl (10-149) 01/23/25 06:37
LDL Cholesterol, Calc 71 mg/dl 01/23/25 06:37
VLDL Cholesterol, Calc 11 mg/dl (0-30) 01/23/25 06:37
HDL Cholesterol 49 mg/dl 01/23/25 06:37
LAB Results
01/23/25 01/23/25 01/23/25
00:18 03:37 06:37
Troponin I 0.041 H* 0.432 H* D 2.070 H* D
01/23/25 01/23/25 01/24/25
09:53 16:20 04:49
Troponin I 5.790 H* D 37.000 H* D 16.600 H*
Physical Exam
Constitutional: Comfortable
Cardiovascular: Rhythm & rate is regular
Respiratory: Respiratory effort normal
Neuro/Psych: AO x 3
Data Reviewed
-
Date of Service: January 25, 2025
Medical Decision Making: Reviewed Test Results
EKG: Tracing Personally Visualized and interpreted
Echo: Tracing Personally Visualized and interpreted
Labs: Labs Reviewed by me
--- NOTE | 2025-01-25 11:21 | W.PN.HOSP.TC ---
Addendum entered and electronically signed by Bruce Curran MD 01/25/25 17:04:
I discussed with cardiology who advised changing the Metoprolol to Metoprolol Succinate 25 mg BID, which was done. Nurse informed patient of the change.
Original Note:
Today's Communication/Plan
-
Discharge today
Assessment / Plan
Assessment / Plan
Physical Exam
Gen-AAOx3, NAD
HEENT-NC, AT, clear oral mm
Neck-supple
CV-reg, no M, +S1/S2
Lungs-clear B/L
Abd-soft, NT, ND. Positive bowel sounds.
Ext-no edema
Musculoskeletal-no cyanosis
Skin-warm and dry
Neuro-grossly non-focal
Psych-calm, cooperative
Assessment/Plan
ACS/NSTEMI secondary to 100% occluded LCx s/p complex bifurcation PCI with DESx3
Non-culprit RCA disease
-First cath took place on 01/23/25 with stents placement
-Continue Dual Antiplatelet Therapy (Aspirin 81 mg daily and Prasugrel 10 mg daily) and high-intensity statin (Atorvastatin 40 mg daily)
-Follow-up on Lp(a) level outpatient with stone unloader: if elevated, should push for PCSK9i
-Continue Lopressor 25 mg BID
-Valsartan 40 mg PO BID
-Regarding the non-culprit RCA disease: given complexity of fixing this (long segment stenting, bifurcation) in a territory that is robustly collateralized, cardiology will hold off and see how patient does clinically; if has signs of
angina in the future can do PCI
-Echocardiogram unremarkable
-Follow- up with outpatient stone unloader Dr. Foy
CAD -with 3 prior stents. Last catheterization 2013. Continue beta arnaldo and ARB.
Hyperglycemia -rule out DM2. Glucose appears controlled. Accuchecks okay. Hemoglobin A1c 5.5%. Outpatient follow-up. Follow carb-controlled diabetic diet outpatient.
Central retinal vein occlusion -left eye. Gets intravitreal injections of Cimerli.
Full code
More than 30 minutes spent in discharge including
Final examination of the patient
Summarizing hospital stay
Instructions for continuing care to all relevant caregivers
Preparation of discharge records, prescriptions, and referral forms
Total time spent (in minutes): 39
Anticipated Discharge: Today
Subjective/Interval History
-
Date of Service: January 25, 2025
Patient was seen and examined. He denied any chest pain, shortness of breath or any other symptoms or complaints.
Objective Data
-
Labs:
Laboratory Results
01/25/25
05:18
WBC 6.3
Hgb 15.4
Hct 45.7
Plt Count 154
Sodium 141
Potassium 4.5
Chloride 105
Carbon Dioxide 27
BUN 19
Creatinine 0.8
Glucose 93
Calcium 10.3 H
Vital Signs:
Vital Signs
Temp Pulse Resp BP Pulse Ox
97.7 F 73 18 127/86 97
01/25/25 07:41 01/25/25 08:31 01/25/25 07:41 01/25/25 08:31 01/25/25 07:41
I&O
01/24/25 01/25/25 01/26/25
06:59 06:59 06:59
Intake Total 2240 / 2240 480 / 480
Output Total 250 / 250
Balance 1989 / 1989 480 / 480
[2025-01-25 11:39] VITALS: BP 101/64
[2025-01-25 12:43] LABS: Lipoprotein a (Lp a) 64 mg/dL (<=29)
[2025-01-25 14:00] VITALS: BP 92/64
[2025-01-25 14:02] VITALS: BP 91/56
--- NOTE | 2025-01-25 14:23 | PTCARENOTE ---
Patient ambulating in room with steady gait. Patient has no c/o pain or dizziness. Patient is eager to go home. Spouse at bedside. Right radial dressing removed. No drainage noted, small scab in place.
--- NOTE | 2025-01-25 15:07 | W.DCSUMMARY ---
Discharge Summary
Discharge Data
Date of Admission: 01/23/25
Date of Discharge: 01/25/25
Total time spent discharging patient (in min): 39
-
Pending Results: No
Hospital Course
64 y/o male who presented with chest pain. Patient was determined to have Non-ST elevation myocardial infarction, and was started on intravenous Heparin Drip and intravenous nitroglycerin. Cardiology was consulted. On January 23, 2025, patient had
cardiac cath which showed, as per group managing director:
'CONCLUSIONS
1. Coronary artery disease as described with culprit 1% proximal occlusion of the OM1 to, patent stent in the LAD, and severe disease in the large RCA with collateral flow.
2. Mildly elevated LV filling pressure and no aortic stenosis on hemodynamic pullback
3. Successful PCI to the large branching OM2 with AARON x 3 with initial provisional strategy followed by bailout bifurcation stenting with TAP technique (overlapping 3.5x22 and 3.5x22 [place] AARON in main branch, 2.25x12 mm [place] in side
branch).'
Patient had a transthoracic echocardiogram, which showed, as per group managing director, 'Normal biventricular size and systolic function without regional wall motion abnormality. Estimated LVEF 65-70%. No significant valve disease. No prior study available
for comparison.'
Initially cath for patient's RCA was planned, but regarding his non-culprit RCA disease, given complexity of fixing this (long segment stenting, bifurcation) in a territory that is robustly collateralized, cardiology held off on cath and wanted to
see how he patient was doing clinically; if patient had signs of angina in the future, then could address with PCI. Patient was doing well, and stable for discharge.
Discharge Plan
-
Patient Disposition: Home (Routine Discharge)
Discharge Diagnosis/Procedures: NSTEMI secondary to 100% occluded LCx status post complex bifurcation PCI with DESx3
s/p angioplasty and stent x2 to OM2, x1 to OM3 (01/23/25)
Coronary Artery Disease with history of stents
Hyperglycemia
Central retinal vein occlusion-left eye
Chest X-Ray Findings (as per radiologist's report):
'FINDINGS:
The cardiac silhouette appears mildly enlarged. There is tortuosity of the ascending and descending thoracic aorta with possible fusiform aneurysmal dilatation of the ascending thoracic aorta which appears unchanged from 10/28/2013. The pulmonary
vasculature appears within normal limits.
The trachea is midline. The lung volumes are normal. There is no radiographic evidence for focal airspace opacity suspicious for pneumonia. There is no radiographic evidence for inflammatory interstitial pneumonitis in the lungs. There is no
radiographic evidence for pleural effusion or pneumothorax.
There is mild multilevel discogenic degenerative disease throughout the thoracic spine. There is no radiographic evidence for pneumoperitoneum or abnormal bowel dilatation in the upper abdomen.
IMPRESSION:
1. No radiographic evidence for acute cardiopulmonary disease.
2. Mild enlargement of the cardiac silhouette with tortuosity and possible fusiform aneurysmal dilatation of the thoracic aorta which appears unchanged from 10/28/2013.'
Condition: Good
Diet: Low Fat, Low Cholesterol, Low Sodium and Diabetic, Carb Controlled
Activity: As tolerated
Other Services: Cardiac Rehab
Activity Restrictions/Additional Instructions:
Please call [facility] Cardiac Rehab to schedule your first visit at [phone]
-Continue Dual Antiplatelet Therapy with Aspirin and Prasugrel for at least 1 year
-Very aggressive secondary prevention of coronary artery disease with aggressive risk factor modification including a goal LDL at least <55
-Follow-up Lp(a) level, if elevated, strong recommendation for PCSK9i medication outpatient
-Outpatient follow-up with your primary group managing director Dr. Rolando Foy, [facility]
Stand Alone Forms: DC Instructions- Cath/EP Lab
Referrals:
Karley Porter DO [Family Provider] -
Sean Foy DO [Non-Admitting Privileges] - in two to four weeks (Cardiology followup appointment)
Additional Discharge Medication Instructions: Prasugrel is a new medication -- you need to continue Dual Antiplatelet Therapy (with both Aspirin and Prasugrel) for at least 1 year and make sure you do not miss any doses.
Atorvastatin has been increased to 40 mg daily.
Atenolol has been stopped.
Metoprolol Tartrate is a new medication.
Valsartan is a new medication.
Prescriptions:
New
valsartan 40 mg Tablet
40 mg PO BID Qty: 60 2RF
prasugrel HCl 10 mg Tablet
10 mg PO DAILY Qty: 30 11RF
aspirin 81 mg Tablet,Chewable
81 mg PO DAILY Qty: 30 11RF
metoprolol succinate [Toprol XL] 25 mg tablet extended release 24 hr
25 mg PO Q12H Qty: 60 2RF
atorvastatin 40 mg tablet
40 mg PO QPM Qty: 30 11RF
Continued
Claritin-D 24 Hour 1 EACH tablet extended release 24 hr
1 tab PO PRN PRN (Reason: BINDU)
docosahexaenoic acid-epa 1 CAP capsule
1 cap PO DAILY
omeprazole magnesium [Prilosec OTC] 20 MG tablet,delayed release (DR/EC)
20 mg PO DAILY Qty: 0 0RF
Rx Instructions:
over the counter med
Cimerli 0.5 mg/0.05 mL Solution
0.5 mg INTRAVITREAL [id number]
Discontinued
aspirin 325 MG tablet
81 mg PO DAILY
atorvastatin 20 MG tablet
10 mg PO QPM
atenolol 50 MG tablet
25 mg PO Q48H Qty: 0 0RF
Discharge Orders:
Discharge Patient (As Directed); Ordered 01/25/25
Ordered By: Bruce Curran
Care Plan Goals
Care Plan Goals:
Problem: Readiness for enhanced knowledge related to diagnosis and treatment plan
Goal: Understand your diagnosis and treatment plan needs, including medications if applicable.
Instructions: Know your diagnosis, underlying causes and treatment plan options, including medications if applicable. Consult with your health care team to learn about your diagnosis and treatment plan, including medications if applicable.
Discharge Date and Time
Discharge Date/Time: 01/25/25 16:41
Print Language: INDIAN
[2025-01-26 13:20] LABS: ACT-LR - POC > 397 Seconds (116-155)
== END 2025-01-25 16:41 | disposition home or self-care (01) | DRG 322 ==
LOC: IVU 03:36
PROVIDERS: Hospitalist; Student in an Organized Health Care Education/Training Program; ADMITTING PHYSICIAN Hospitalist; ATTENDING PHYSICIAN Hospitalist; CONSULT PHYSICIAN Internal Medicine Cardiovascular Disease; EMERGENCY PHYSICIAN Student in an Organized Health Care Education/Training Program; FAMILY PHYSICIAN Family Medicine
PROC: 4A023N7 Measurement of Cardiac Sampling and Pressure, Left Heart, Percutaneous Approach (ICD-10-PCS; 2025-01-23)
PROC: 027136Z Dilation of Coronary Artery, Two Arteries with Three Drug-eluting Intraluminal Devices, Percutaneous Approach (ICD-10-PCS; 2025-01-23)
PROC: B2111ZZ Fluoroscopy of Multiple Coronary Arteries using Low Osmolar Contrast (ICD-10-PCS; 2025-01-23)
PROC: B240ZZ3 Ultrasonography of Single Coronary Artery, Intravascular (ICD-10-PCS; 2025-01-23)
DX: I21.4 Non-ST elevation (NSTEMI) myocardial infarction (principal); H34.8122 Central retinal vein occlusion, left eye, stable; Z87.891 Personal history of nicotine dependence; Z79.82 Long term (current) use of aspirin; K21.9 Gastro-esophageal reflux disease without esophagitis; I10 Essential (primary) hypertension; Z79.899 Other long term (current) drug therapy; Z95.5 Presence of coronary angioplasty implant and graft; I25.10 Atherosclerotic heart disease of native coronary artery without angina pectoris
CPT/HCPCS: 71046; 80048; 80053; 80061; 82962; 83036; 83695; 83735; 84484; 85025; 85027; 85347; 85730; 86803; 92978; 93005; 93306; 93458; 96374; 96375; 99152; 99153; 99291; C1725; C1753; C1769; C1874; C1894; C9600; C9601; Q9967